=== PATIENT | male | born 1985 | race Caucasian/White ===

== ENCOUNTER 2017-04-13 20:22 | Emergency (ER) | payer SELFPAY ==
[~2017-04-13] VITALS: Ht 177.8 cm; Wt 76.0 kg
[2017-04-13 21:02] VITALS: Ht 177.8 cm; Wt 76.0 kg
== END 2017-04-14 01:10 | disposition left against medical advice (07) ==
LOC: FTE 20:22
DX: Z53.21 Procedure and treatment not carried out due to patient leaving prior to being seen by health care provider (principal)